=== PATIENT | male | born 1970 | race Caucasian/White ===

== ENCOUNTER 2022-10-01 16:38 | Emergency (ER) | payer BC, SELFPAY ==
[2022-10-01] VITALS (8 sets, daily range): BP systolic 134–163; BP diastolic 86–104; PULSE 63–84; RESP 18; TEMP 36.3; O2SAT 93–95; BMI 33.7
--- NOTE | 2022-10-01 17:26 | ED.GENADULT ---
HPI - General Adult General Time Seen by Provider: 17:26 Date Seen: 10/01/22 Chief complaint: Arrhythmia/Palpitations Stated complaint: Abnormal heartrate Time Seen by Provider: 10/01/22 17:04 Source: patient Mode of arrival: ambulatory Limitations: no limitations History of Present Illness HPI narrative: Ant is a 52-year-old male past medical history includes provoked DVT presents emerged department via private car with heart palpitations. Patient states that in the past he has had on and off heart palpitations, he filled it over the weekend, daily he had palpitations, 5-10 times, lasting a few seconds, this would make him cough, he denies any shortness of breath or chest pain, denies any lightheadedness or dizziness. This occurred at work over the weekend, this is when he was sitting and not exerting himself, denies any alcohol over the weekend, denies any dehydration, he has been eating and drinking normally, no nausea vomiting, episode happened again at work today so he was more concerned. No cardiac history, father had a bypass. Patient states he had a blood clot left lower extremity in 2011 following a leg injury, he has had also has some chronic sciatic pain. He denies any recent travel, leg swelling, at this time. Denies any fevers or chills. Since symptoms are more reoccurring he presents emerged department. Related Data Home Medications Medication Instructions Recorded Confirmed aspirin 81 mg capsule 81 mg PO DAILY 10/01/22 10/01/22 Allergies Allergy/AdvReac Type Severity Reaction Status Date / Time No Known Drug Allergies Allergy Verified 10/01/22 16:45 Review of Systems Status of ROS: Reports: 10 or more systems reviewed and unremarkable except as noted in History and below PFSH PFS Social History Smoking Status: Never smoker How often do you have a drink containing alcohol: monthly or less AUDIT-C Alcohol total score: 1 Non-prescribed substance use: denies use Exam Narrative: Exam Narrative: General: NAD, sittinng comfortalby. HEENT: Cerumen impaction bilaterally. Pupils equal round reactive to light, extraocular muscles intact Neck: Supple Heart normal sinus rhythm, S1-S2 Lungs: Clear to auscultation bilaterally Abdomen: Soft nontender, bowel sounds present Muscle skeletal: Nontender to palpation the lower extremities, no edema or swelling. Neuro: Alert awake and oriented x3 Const: Vital Signs, click to edit/add: Vital Signs - 24 hr 10/01/22 16:42 10/01/22 17:30 10/01/22 17:52 Temperature 97.4 F L Pulse Rate 84 Respiratory Rate 18 Blood Pressure Blood Pressure [Ri ght Upper Arm] 163/104 H 138/89 Pulse Oximetry 95 94 Oxygen Delivery Me thod Room Air 10/01/22 18:00 10/01/22 18:02 10/01/22 18:30 Temperature Pulse Rate 65 63 72 Respiratory Rate Blood Pressure 137/87 Blood Pressure [Ri ght Upper Arm] Pulse Oximetry 93 93 94 Oxygen Delivery Me thod 10/01/22 19:00 10/01/22 19:02 Temperature Pulse Rate 71 72 Respiratory Rate Blood Pressure 134/86 Blood Pressure [Ri ght Upper Arm] Pulse Oximetry 95 95 Oxygen Delivery Me thod Course Course Hospital Course: 4:30 PM: AIDET performed, workup will include IV peripheral, 0.9 normal saline bolus 500 mL, will obtain CBC, TSH, D-dimer, point of care troponin, CMP, EKG and XR chest PA and lateral. Will continue to monitor him , to see if any recurrence. Differential diagnosis include but not limited to psychosocial stress, thyroid abnormalities, heart failure, SVT, atrial fibrillation, V-tach and ventricular fibrillation. These include a life-threatening complication of heart failure V-tach and VFib. Reevaluation(s) Reevaluation #1: Patient updated on his EKG, imaging and lab results, EKG showed a normal sinus rhythm, bpm of 88, no ectopy or acute ST changes, no comparison. CBC showed no leukocytosis, hemoglobin was stable, metabolic panel within normal limits, normal renal function electrolyte, TSH within normal limits, troponin negative, D-dimer within normal limits, imaging showed no acute cardiopulmonary process, patient did not have any reoccurrence of his symptoms during his stay while being on the monitor, plan to discharge with Holter monitor, he needs follow-up with a primary care provider over the next 7-10 days, reasons to return given. Time: 19:26 Vital Signs Vital signs: Initial Vital Signs Temperature 97.4 F L 10/01/22 16:42 Temperature Source Temporal Artery Scan 10/01/22 16:42 Respiratory Rate 18 10/01/22 16:42 Blood Pressure 163/104 H 10/01/22 16:42 Blood Pressure Mean 123 10/01/22 16:42 Pulse Oximetry 95 10/01/22 16:42 Oxygen Delivery Method 10/01/22 16:42 Vital Signs Temperature 97.4 F L 10/01/22 16:42 Respiratory Rate 18 10/01/22 16:42 Blood Pressure 163/104 H 10/01/22 16:42 Pulse Oximetry 95 10/01/22 16:42 Oxygen Delivery Method 10/01/22 16:42 Temperature 97.4 F L 10/01/22 16:42 Pulse Rate 72 10/01/22 19:02 Respiratory Rate 18 10/01/22 16:42 Blood Pressure 134/86 10/01/22 19:02 Pulse Oximetry 95 10/01/22 19:02 Oxygen Delivery Method 10/01/22 16:42 Medical Decision Making Lab Data Labs: Lab Results 10/01/22 10/01/22 10/01/22 Range/Units 15:13 15:13 15:13 WBC 5.97 (4.50-11.00) K/uL RBC 5.31 (4.30-5.90) m/uL Hgb 16.4 (13.5-17.5) gm/dL Hct 49.5 (37.0-53.0) % MCV 93 (80-100) fL MCH 31 (26-34) pg MCHC 33 (32-36) gm/dL RDW Coeff of Jay 12.6 (11.5-15.5) % Plt Count 211 (140-440) K/uL Neut % (Auto) 42.1 (42.0-72.0) % Lymph % (Auto) 43.6 (20-44) % Wy[place] % (Auto) 10.6 (0.0-11.0) % Eos % (Auto) 2.7 (0.0-7.0) % Baso % (Auto) 1.0 (0.0-3.0) % Neut # (Auto) 2.52 (1.7-7.0) K/uL Lymph # (Auto) 2.60 (0.90-2.90) K/uL [place] # (Auto) 0.60 (0.00-0.90) K/UL Eos # (Auto) 0.16 (0.00-0.50) K/uL Baso # (Auto) 0.06 (0.00-0.30) K/uL D-Dimer Quant (PE/DVT) 0.28 (0.00-0.50) ug/ml Sodium 142 (135-149) mmol/L Potassium 4.3 (3.6-5.1) mmol/L Chloride 109 (96-114) mmol/L Carbon Dioxide 25 (20-32) mmol/L BUN 18 (7-30) mg/dL Creatinine 1.0 (0.5-1.5) mg/dL Estimated Creat Clear 87.19 Estimated GFR 89 ml/min Glucose 115 (60-115) mg/dL Calcium 8.9 (8.4-10.6) mg/dL Total Bilirubin 0.6 (0.1-1.5) mg/dL AST 42 H (12-35) U/L ALT 35 (4-50) U/L Alkaline Phosphatase 81 (40-150) U/L Total Protein 8.1 (6.0-8.3) g/dL Albumin 4.4 (3.3-5.0) g/dL TSH (0.270-4.20) uIU/mL POC Troponin I (0.01-0.04) ng/ml 10/01/22 10/01/22 Range/Units 15:13 17:24 WBC (4.50-11.00) K/uL RBC (4.30-5.90) m/uL Hgb (13.5-17.5) gm/dL Hct (37.0-53.0) % MCV (80-100) fL MCH (26-34) pg MCHC (32-36) gm/dL RDW Coeff of Jay (11.5-15.5) % Plt Count (140-440) K/uL Neut % (Auto) (42.0-72.0) % Lymph % (Auto) (20-44) % [place] % (Auto) (0.0-11.0) % Eos % (Auto) (0.0-7.0) % Baso % (Auto) (0.0-3.0) % Neut # (Auto) (1.7-7.0) K/uL Lymph # (Auto) (0.90-2.90) K/uL [place] # (Auto) (0.00-0.90) K/UL Eos # (Auto) (0.00-0.50) K/uL Baso # (Auto) (0.00-0.30) K/uL D-Dimer Quant (PE/DVT) (0.00-0.50) ug/ml Sodium (135-149) mmol/L Potassium (3.6-5.1) mmol/L Chloride (96-114) mmol/L Carbon Dioxide (20-32) mmol/L BUN (7-30) mg/dL Creatinine (0.5-1.5) mg/dL Estimated Creat Clear Estimated GFR ml/min Glucose (60-115) mg/dL Calcium (8.4-10.6) mg/dL Total Bilirubin (0.1-1.5) mg/dL AST (12-35) U/L ALT (4-50) U/L Alkaline Phosphatase (40-150) U/L Total Protein (6.0-8.3) g/dL Albumin (3.3-5.0) g/dL TSH 1.770 (0.270-4.20) uIU/mL POC Troponin I 0.00 L (0.01-0.04) ng/ml Discharge Plan Discharge Clinical Impression: Palpitations Patient Disposition: Home, Self-Care Condition: Improved Instructions: Heart Palpitations (ED) Additional Instructions: To wear Holter Monitor Activity Level: No Restrictions Prescriptions: No Action aspirin 81 mg capsule 81 mg PO DAILY Stand Alone Forms: MyHealth Info Instructions
[2022-10-01] MEDS: 0.9 % SODIUM CHLORIDE 500 ML 500 ML IV (17:30)
[2022-10-01 17:35] LABS: Basophils Absolute Auto 0.06 K/uL (0.00-0.30); Eosinophils Absolute Auto 0.16 K/uL (0.00-0.50); Eosinophils Percent Auto 2.7 % (0.0-7.0); Hematocrit 49.5 % (37.0-53.0); Hemoglobin* 16.4 gm/dL (13.5-17.5); Lymphocytes Percent Auto 43.6 % (20-44); Mean Corpuscular HGB Conc 33 gm/dL (32-36); Mean Corpuscular Hemoglobin 31 pg (26-34); Mean Corpuscular Volume 93 fL (80-100); Monocytes Percent Auto 10.6 % (0.0-11.0); Neutrophils Absolute Auto 2.52 K/uL (1.7-7.0); Neutrophils Percent Auto 42.1 % (42.0-72.0); Platelet Count* 211 K/uL (140-440); RDW Coefficient of Variation % 12.6 % (11.5-15.5); Red Blood Count 5.31 m/uL (4.30-5.90); White Blood Count* 5.97 K/uL (4.50-11.00)
[2022-10-01 17:39] LABS: Slide Review Reflex No
[2022-10-01 18:00] LABS: Albumin* 4.4 g/dL (3.3-5.0); Chloride* 109 mmol/L (96-114)
[2022-10-01 18:01] LABS: Potassium* 4.3 mmol/L (3.6-5.1); Sodium* 142 mmol/L (135-149)
[2022-10-01 18:03] LABS: Bilirubin Total* 0.6 mg/dL (0.1-1.5); Est. Creatinine Clearance* 87.19; Estimated Glomerular Filt Rate 89 ml/min
[2022-10-01 18:04] LABS: Alanine Aminotransferase* 35 U/L (4-50); Alkaline Phosphatase* 81 U/L (40-150); Aspartate Amino Transferase* 42 U/L (12-35); Blood Urea Nitrogen* 18 mg/dL (7-30); Calcium* 8.9 mg/dL (8.4-10.6); Carbon Dioxide* 25 mmol/L (20-32); Glucose* 115 mg/dL (60-115); Total Protein* 8.1 g/dL (6.0-8.3)
[2022-10-01 18:09] LABS: D Dimer Quantitative* 0.28 ug/ml (0.00-0.50)
--- NOTE | 2022-10-01 18:20 | CRLHL7_ITS ---
For Patients: As a result of the Century Cures Act, medical imaging exams and procedure reports are released immediately into your electronic medical record. You may view this report before your referring provider. If you have questions, please contact your health care provider. INDICATION: PALPITATIONS TECHNIQUE: Chest 2 views. COMPARISON: 01/24/19 FINDINGS: Cardiovascular and mediastinum: Heart size and vasculature are normal in caliber and appearance. Mediastinum is within normal limits. Lungs and pleural spaces: Lungs are clear. No sign of infiltrate or mass. No sign of pleural effusion. No pneumothorax. Bones and soft tissues: No significant findings. IMPRESSION: Unremarkable chest. Dictated by: Jim Sawant MD @ 10/01/2022 18:59:25 (Electronically Signed)
--- NOTE | 2022-10-01 19:45 | ED.NURSE ---
dc teaching complete, waiting for holter monitor then pt will leave.
== END 2022-10-01 20:09 | disposition home or self-care (01) ==
PROVIDERS: Emergency Provider Student in an Organized Health Care Education/Training Program; PCP Family Medicine
DX: R00.2 Palpitations (principal)
CPT/HCPCS: 36415; 71046; 80053; 84443; 84484; 85025; 85379; 93005; 93225; 93226; 99283; 99284; J7120

== ENCOUNTER 2025-01-01 18:58 | Emergency (ER) | payer OTHER, BC, SELFPAY ==
--- OUTSIDE RECORDS SUMMARY | 2025-01-01 19:00 | XMS_ITS | Clinical Summary ---
Author Organization [facility] Address [address] [place] [id number] Care Team Providers Care Mergers And Acquisitions Associate Name Role Phone Sera Wing MD Primary Care Provider Allergies No known active allergies Medications MULTIVITAMIN TAB take 1 tablet by oral route once daily with food 0 12/16/2006 Active GLUCOSAMINE-CHO NDROITIN 500 MG-400 MG CAP daily 0 12/30/2006 Activ e FISH OIL CAP daily 0 12/30/2006 Active VITAMIN E 400 UNIT CAP daily 0 12/30/2006 Active VITAMIN B W/C CAP daily 0 12/30/2006 Active ascorbic acid chewable (VITAMIN C) 250 mg Chew Take 2 tablets by mouth once daily. 0 04/17/2010 Active cholecalciferol (VITAMIN D) 1,000 unit capsule Take 1 capsule by mouth once daily. 0 01/10/2012 Active aspirin (ECOTRIN) 81 mg enteric coated tablet Take 1 tablet by mouth once daily with a meal. 0 12/14/2014 Active lutein 6 mg cap Take 1 capsule by mouth once daily. Not sure of dose 0 04/24/2017 Active magnesium oxide (MAG-CAPS ORAL) Take by mouth. 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 03/13/2011 01/10/2012 DVT (deep venous thrombosis) 03/09/2011 11/07/2011 Immunizations Immunization Administration Dates Next Due Td (Age >=7 Years) 04/21/2001 Tdap 12/14/2014,07/14/2000 Zoster (Shingrix-RZV, recombinant) 09/13/2020, Family History Medical History Relation Name Comments No Known Problems Brother 1 Abdiel No Known Problems Brother 2 Garfield No Known Problems Brother 3 Cesar Heart murmur Daughter Carole As a child Cancer-colon Father Heart Disease Father Leukemia Father Glaucoma Mother Hypertension Mother Skin cancer Mother No Known Problems Sister 1 Kacie No Known Problems Sister 2 Syd No Known Problems Sister 3 Tarah No Known Problems Sister 4 Nelida No Known Problems Son Abhinav Relation Name Status Comments Brother 1 Abdiel Alive Brother 2 Garfield Alive Brother 3 Cesar Alive Daughter Carole Alive Father Maternal Grandfather Maternal Grandmother Mother Paternal Grandfather Paternal Grandmother Sister 1 Kacie Alive Sister 2 Syd Alive Sister 3 Tarah Alive Sister 4 Nelida Alive Son Abhinav Alive Social History Tobacco Use Types Packs/Day Years Used Date Smoking Tobacco: Never Smokeless Tobacco: Never Tobacco Cessation:Counseling Given: Yes Alcohol Use Standard Drinks/Week Comments Yes 0 (1 standard drink = 0.6 oz pure alcohol) Once every few months. 1-2 drinks at a time. PHQ-2 Answer Date Recorded PHQ-2 TOTAL SCORE 0 05/29/2023 Social Connections Answer Date Recorded Do you often feel lonely or isolated from those around you? 0 07/03/2023 Financial Resource Strain Answer Date R ecorded Difficulty of Paying Living Expenses 3 07/03/2023 Difficulty of Paying Living Expenses Not on file 07/03/2023 Food Insecurity Answer Date Recorded Do you worry your food will run out before you are able to buy more? 1 07/03/2023 Transportation Needs Answer Date Record ed Does lack of transportation keep you from medica l appointments? 1 07/03/2023 Does lack of transportation keep you from work, meetings or getting things that you need? 1 07/03/2023 Housing Stability Answer Date Recorded What is your housing situation today? 1 07/03/2023 Utilities Answer Date Recorded Do you have trouble paying f or utilities (for example, heat, electricity, water, phone)? 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 Not on file Not on file Obstetrics History Last Filed Vital Signs Vital Sign Reading Time Taken Comments Blood Pressure 138/84 07/03/2023 8:25 AM CHEMIST WATER PURIFICATION Pulse 66 07/03/2023 8:05 AM CHEMIST WATER PURIFICATION Temperature 36.8 C (98.3 F) 06/22/2022 10:34 AM CHEMIST WATER PURIFICATION Respiratory Rate 16 05/20/2023 1:27 PM CHEMIST WATER PURIFICATION Oxygen Saturation 97% 07/03/2023 8:04 AM CHEMIST WATER PURIFICATION Inhaled Oxygen Concentration - - Weight 107 kg (235 lb 12.8 oz) 07/03/2023 8:04 A M CHEMIST WATER PURIFICATION Height 180.3 cm (5' 11) 05/29/2023 3:23 PM CHEMIST WATER PURIFICATION Body Mass Index 32.89 05/29/2023 3:23 PM CHEMIST WATER PURIFICATION Plan of Treatment Health Maintenance Due Date Last Done Comments Hepatitis B series for 19+ ( 1 of 3 - 19+ 3-dose series) 1987 Pneumococcal series for age 50+ (1 of 1 - PCV) 2018 COVID-19 vaccine series ( season) 2024 BMI (ht and wt on same day) for age 18+ 05/29/2024 05/29/2023, 05/15/2022, 05/14/2021, Additional history exists Depression screening for age 12+ 05/29/2024 05/29/2023, 05/15/2022, 05/14/2021, Additional history exists Tetanus booster 12/14/2024 12/14/2014, 10/0 03/2001, 07/14/2000 Influenza Vaccine (Season Ended) 2025 Colonoscopy through age 75 05/20/202805/20, 05/20/2023, 01/13/2018, Additional history exists Lipids for age 45-75 05/29/2028 05/29/2023, 05/15/2022, 05/14/2021, Additional history exists Tdap Completed 12/14/2014, 07/14/2000 Zoster (shingles) series for age 50+ Completed 09/13/2020, 04/25/2020 Hepatitis C screening for ag e 18-79 Completed 05/15/2022 HIV for age 15-65 Completed 05/29/2023 Procedures Procedure Name Priority Date/Time Associated Diagnosis Comments ANTI HIV 1/2 Routine 05/29/2023 3:59 PM CHEMIST WATER PURIFICATION Encounter for screening for HIV LIPID PANEL W REFLEX MEASURED LDL Routine 05/29/2023 3:59 PM CHEMIST WATER PURIFICATION Screening, lipid COLONOSCOPY 05/20/2023 12:41 PM CHEMIST WATER PURIFICATION ANTI HCV Routine 05/15/2022 9:26 AM CDT Need for hepatitis C screening test from Last 3 Months or Most Recently Relevant to Health Maintenance Results * (ABNORMAL) LIPID PANEL W REFLEX MEASURED LDL (05/29/2023 3:59 PM CHEMIST WATER PURIFICATION) CHOLESTEROL,TOTAL 266(H) 100 - 199 mg/dL 05/29/2023 9:59 PM CHEMIST WATER PURIFICATION [facility] Comment: Cholesterol, Total Reference Ranges Desirable <200 mg/dL Borderline 200-239 mg/dL High >=240 mg/dL TRIGLYCERIDES 103 <150 mg/dL 05/29/2023 9:59 PM CHEMIST WATER PURIFICATION [facility] HDL CHOLESTEROL 56 >40 mg/dL 9:59 PM CHEMIST WATER PURIFICATION [facility] NON-HDL CHOLESTEROL 210(H) <145 mg/dl 05/29/2023 9:59 PM CHEMIST WATER PURIFICATION [facility] CHOL/HDL RATIO 4.75(H) <4.50 05/29/2023 9:59 PM CHEMIST WATER PURIFICATION [facility] LDL CHOLESTEROL 189(H) <=130 mg/dL 05/29/2023 9:59 PM CHEMIST WATER PURIFICATION [facility] VLDL CHOLESTEROL 21 <=30 mg/dL 05/29/2023 9:59 PM CHEMIST WATER PURIFICATION [facility] PROVIDER ORDERED STATUS RANDOM 05/29/2023 9:59 PM CHEMIST WATER PURIFICATION [facility] Blood BLOOD SPECIMEN / Unknown Butterfly / Unknown 05/29/2023 3:59 PM CHEMIST WATER PURIFICATION 05/29/2023 3:59 PM CHEMIST WATER PURIFICATION Sera Wing MD CHEMISTRY Final R esult Performing Organization Address City/[facility]/ZIP Co de Phone Number [facility] [address] [place] [address], [place] * ANTI HIV 1/2 (05/29/2023 3:59 PM CHEMIST WATER PURIFICATION) HIV-1/HIV-2 SCREEN Non-Reacti ve Non-Reacti ve 05/29/2023 9:46 PM CHEMIST WATER PURIFICATION [facility] Comment:HIV-1 p24 and HIV-1/ HIV-2 Ab Not Detected. Blood BLOOD SPECIMEN / Unknown Butterfly / Unknown 05/29/2023 3:59 PM CHEMIST WATER PURIFICATION 05/29/2023 3:59 PM CHEMIST WATER PURIFICATION us Sera Wing MD SEND OUTS Final R esult Performing Organization Address City/[facility]/ZIP Co de Phone Number [facility] [address] [place] [address], [place] * COLONOSCOPY (05/20/2023 12:41 PM CHEMIST WATER PURIFICATION) 05/20/2023 12:4 1 PM CHEMIST WATER PURIFICATION Narrative Transcriptions Jose Guadalupe Russo MD - 05/20/2023 1:12 PM CST Patient Name: Ant Ziegler Procedure Date: 05/20/2023 Gender: Male Date of : 1970 Admit Type: Outpatient Procedure: Colonoscopy Proceduralist: Jose Guadalupe Russo MD , Ariella Portillo (Nurse), Elizabeth Townsend (Nurse) Indications/Pre-Op Diagnosis: Screening in patient at increased risk:Family history of 1st-degree relative withcolorectal cancer before age 60 years, Lastcolonoscopy: January 2018 Medications: Fentanyl 100 micrograms IV, Midazolam 2 mgIV, The level of sedation administered wasmoderate Procedure Description: The patient had risks, benefits and alternatives explained to andgave informed consent. The patient had a stable cardiopulmonary status and judged an adequate candidate for conscious sedation. The endoscope [id number] was passed through the anus andadvanced to the cecum, identified by appendiceal orifice and ileocecal valve.The colonoscopy was performed without difficulty. The patient toleratedthe procedure well. The quality of the bowel preparation was good. The ileocecal valve, appendiceal orifice, and rectum were photographed. Complications: No immediate complications. Estimated Blood Loss & Specimen: Estimated blood loss: none. Specimen collected - Yes and sent to Laboratory Findings: The perianal and digital rectal examinations were normal. Two sessile polyps were found in the proximal ascending colon. The polyps were 3 mm in size. These polyps were removed with a coldsnare. Resection was complete, but the polyp tissue was only partially retrieved. The exam was otherwise without abnormality. Impressions/Post-Op Diagnosis: - Two 3 mm polyps in the proximal ascending colon, removed with acold snare. Resected and retrieved. - The examination was otherwise normal. Recommendation: - Patient has a contact number available for emergencies. The signsand symptoms of potential delayed complications were discussed with the patient. Return to normal activities tomorrow. Written discharge instructions were provided to the patient. - Resume previous diet. - Continue present medications. - Await pathology results. - Repeat colonoscopy in 5 years. Moderate Sedation: A time out was performed before the procedure. Moderate (conscious) sedation was administered by the endoscopy nurse and supervised bythe endoscopist. The following parameters were monitored: oxygensaturation, heart rate, blood pressure, EKG, CO2, respiratory rate, adequacy of pulmonary ventilation and reponse to care. Please refer to the patient's medical record flowsheets and nursing notes for moderate sedation details. Total physician intraservice time was 23 minutes. Jose Guadalupe Russo MD 05/20/2023 1:12:45 PM This report has been signed electronically. Note Initiated On: 05/20/2023 12:41 PM Procedure Code(s): --- Professional --- 76293, Colonoscopy, flexible; with removalof tumor(s), polyp(s), or other lesion(s) bysnare technique Diagnosis Code(s): --- Professional --- Z80.0, Family history of malignant neoplasmof digestive organs D12.2, Benign neoplasm of ascending colon CPT copyright 2021 [employer]. All rights reserved. The codes documented in this report are preliminary and upon coder operator reviewmay be revised to meet current compliance requirements. Scope In: 12:47:28 PM Scope Withdrawal Time 0 hours 11 minutes 40 seconds Scope Out: 1:08:18 PM us Jose Guadalupe Russo MD PROCEDURE ORD Final Res ult * ANTI HCV (05/15/2022 9:26 AM CDT) HEPATITIS C ANTIBODY Non-React cassidy Non-React cassidy 05/16/2022 12:26 AM CDT [facility] Comment:Antibodies to HCV no t detected; does not exclude the possibility of exposure to HCV. Blood BLOOD SPECIMEN / Unknown Venipuncture / Unknown 05/15/2022 9:26 AM CDT 05/15/2022 9:26 AM CDT us Sera Wing MD SEND OUTS Final R esult [facility] [address] [place] [address], [place] from Last 3 Months or Most Recently Relevant to Health Maintenance Insurance [employer] * Guarantor: Cheryl Cheema Account Type Relation to Patient Date of Phone Billing Address Personal/Family 1970 [address] [facility] [place] [phone] Care Teams Mergers And Acquisitions Associate Relationship Specialty [place] [id number] [address] [facility] [place] [address] PCP - General Family Practice 03/20/22
--- OUTSIDE RECORDS SUMMARY | 2025-01-01 19:00 | XMS_ITS | Clinical Summary ---
Author Organization [facility] Address [address] [place] [address] Care Team Providers Care Ent Surgeon Name Role Phone No Ref-Primary, Physician Primary Care Provider Allergies No known active allergies Medications Multiple Vitamins-Mineral s (MULTIVITAMIN OR) Active aspirin 81 MG tablet Take by mouth daily Active Active Problems Problem Noted Date Diagnosed Date DVT (deep venous thrombosis) 12/20/2013 Immunizations Immunization Administration Dates Next Due TDAP (Adacel,Boostrix) 07/14/2000 Family History Medical History Relation Comments Cancer Father Heart Disease Father Arthritis Mother Hypertension Mother Relation Status Comments Father Mother Social History Tobacco Use Types Packs/Day Years Used Date Smoking Tobacco: Never Smokeless Tobacco: Never Tobacco Cessation:Counseling Given: Yes Alcohol Use Standard Drinks/Week Comments Yes 0 (1 standard drink = 0.6 oz pur e alcohol) Sex and Gender Information Value Date Recorded Sex Assigned at Not on file Legal Sex Male 3:19 AM SOUND CONTROLLER Gender Identity Not on file Sexual Orientation Not on file Last Filed Vital Signs Vital Sign Reading Time Taken Comments Blood Pressure 122/78 11/28/2017 3:35 PM CDT Pulse 88 11/28/2017 3:35 PM CDT Temperature 37.2 C (98.9 F) 08/23/2017 10:33 AM SOUND CONTROLLER Respiratory Rate 16 11/13/2017 9:37 AM CDT Oxygen Saturation 95% 11/28/2017 3:35 PM CDT Inhaled Oxygen Concentration - - Weight 104.3 kg (230 lb) 11/13/2017 9:37 AM CDT pt reported Height 177.8 cm (5' 10) 11/13/2017 9:37 AM CDT pt reported Body Mass Index 33 11/13/2017 9:37 AM CDT Plan of Treatment Not on file Insurance [place] Care Teams Ent Surgeon Relationship Specialty Start Date End Date No Ref-Primary, Physician PCP - General 08/23/17
[2025-01-01 19:05] VITALS: BP 155/85; PULSE 85; RESP 18; TEMP 36.9; O2SAT 99; BMI 30.8
--- NOTE | 2025-01-01 19:21 | CRLHL7_ITS ---
For Patients: As a result of the Century Cures Act, medical imaging exams and procedure reports are released immediately into your electronic medical record. You may view this report before your referring provider. If you have questions, please contact your health care provider. Indication: Mid posterior forearm pain Comparison: None available. Technique: AP and lateral views left forearm were obtained. Findings: There is no displaced fracture or dislocation. The joint spaces are grossly preserved. The soft tissues are unremarkable. Impression: No acute osseus abnormality. Dictated by Luis Angel Majano MD @ 01/01/2025 7:58:45 PM (Electronically Signed)
--- NOTE | 2025-01-01 19:21 | CRLHL7_ITS ---
For Patients: As a result of the Century Cures Act, medical imaging exams and procedure reports are released immediately into your electronic medical record. You may view this report before your referring provider. If you have questions, please contact your health care provider. Indication: Distal tenderness of the volar aspect of the ulna, fall Comparison: None available. Technique: AP, lateral, and oblique views left wrist were obtained. Findings: There is questionable subtle fracture through the dorsum of the carpus seen on the lateral projection. No other displaced injuries are appreciated. The joint spaces are grossly preserved. There is mild carpal soft tissue prominence. Impression: Questionable subtle lucency through the dorsum of the carpus seen best on the lateral projection which may represent a nondisplaced triquetral fracture. Otherwise, no evidence of displaced fracture is identified. Mild carpal soft tissue swelling. Dictated by Luis Angel Majano MD @ 01/01/2025 7:53:53 PM (Electronically Signed)
--- NOTE | 2025-01-01 19:46 | ED.UPPEXIN ---
HPI - Extremity Injury (Upper) General Date Seen: 01/01/25 Chief Complaint: Extremity Pain/Injury, Upper Stated Complaint: Left forearm/wrist injury Time Seen by Provider: 01/01/25 19:05 Source: patient Mode of arrival: ambulatory Limitations: no limitations History of Present Illness HPI narrative: Patient is a 54-year-old male presenting to the emergency department for left forearm and wrist pain. He states earlier today he tripped and fell and caught himself with his hands. States he did not hit his head. Since then he has been having pain in his mid dorsal forearm region most notably when he tries to turn his hand. Pain seems to come across towards the medial epicondyle. At rest he does not have much pain. He tried icy and home but the pain persisted. Came in to make sure there are no other injuries. Denies any numbness to the hand. No pain with flexion of the wrist but does have pain with extension. No other concerns noted Related Data Home Medications ?Medication ?Instructions ?Recorded ?Confirmed aspirin 81 mg capsule 81 mg PO DAILY 10/01/22 01/01/25 Allergies Allergy/AdvReac Type Severity Reaction Status Date / Time No Known Drug Allergies Allergy Verified 01/01/25 19:06 Review of Systems Narrative: Pertinent systems reviewed and were negative unless stated in HPI PFSH PFSH Social History Smoking Status: Never smoker Second hand tobacco smoke exposure: No How often do you have a drink containing alcohol: monthly or less AUDIT-C Alcohol total score: 1 Non-prescribed substance use: denies use Exam Narrative: Exam Narrative: Const: Well-nourished, Well-developed, in mild distress Eyes: PERRL, no conjunctival injection, and symmetrical lids HENT: Atraumatic external nose and ears. Moist mucous membranes. CVS: Radial pulse +2 bilaterally MSK:Extremities w/o deformity, mild tenderness near the distal volar aspect of the ulna. Decreased active range of motion of the wrist secondary to pain most notably with pronation and extension. No snuffbox tenderness Skin: Warm, Dry. No rashes or lesions. Neuro: Normal Muscle tone, No focal neurological deficits. Psych: Awake, Alert, & Oriented x3. Appropriate mood and affect. Const: Vital Signs, click to edit/add: Vital Signs - 24 hr 01/01/25 19:05 Temperature 98.4 F Pulse Rate [Right Pulse Oximeter] 85 Respiratory Rate 18 Blood Pressure [Ri ght Upper Arm] 155/85 H Pulse Oximetry 99 Oxygen Delivery Me thod Room Air Course Vital Signs Vital signs: Initial Vital Signs Temperature 98.4 F 01/01/25 19:05 Temperature Source Temporal Artery Scan 01/01/25 19:05 Pulse Rate 85 01/01/25 19:05 Respiratory Rate 18 01/01/25 19:05 Blood Pressure 155/85 H 01/01/25 19:05 Blood Pressure Mean 108 H 01/01/25 19:05 Blood Pressure Position Sitting 01/01/25 19:05 Pulse Oximetry 99 01/01/25 19:05 Oxygen Delivery Method Room Air 01/01/25 19:05 Vital Signs Temperature 98.4 F 01/01/25 19:05 Pulse Rate 85 01/01/25 19:05 Respiratory Rate 18 01/01/25 19:05 Blood Pressure 155/85 H 01/01/25 19:05 Pulse Oximetry 99 01/01/25 19:05 Oxygen Delivery Method Room Air 01/01/25 19:05 Temperature 98.4 F 01/01/25 19:05 Pulse Rate 85 01/01/25 19:05 Respiratory Rate 18 01/01/25 19:05 Blood Pressure 155/85 H 01/01/25 19:05 Pulse Oximetry 99 01/01/25 19:05 Oxygen Delivery Method Room Air 01/01/25 19:05 MDM - Extremity Injury (Upper) MDM Narrative Medical decision making narrative: Patient is a 54-year-old male presenting for forearm and wrist pain. He does have some tenderness near the distal ulna the also has pain seems to be in mid forearm. Seems most likely muscle strain based on the description by will do x-rays to rule out any fractures. X-ray shows no fractures of the forearm but there is possibly a small triquetral fracture. It is rather faint so hard to say definitively. He does have tenderness there so I will put him in a splint and treated as a fracture. He is agreeable to this plan. He will follow-up with orthopedics. He is neurovascular intact. Imaging Data X-ray left wrist: Attestation: I have reviewed the pertinent imaging results. Radiologist's impression: Questionable subtle lucency through the dorsum of the carpus seen best on the lateral projection which may represent a nondisplaced triquetral fracture. Otherwise, no evidence of displaced fracture is identified. Mild carpal soft tissue swelling. Dictated by Luis Angel Majano MD @ 01/01/2025 7:53:53 PM X-ray left forearm: Attestation: I have reviewed the pertinent imaging results. Radiologist's impression: No acute osseus abnormality. Dictated by Luis Angel Majano MD @ 01/01/2025 7:58:45 PM Discharge Plan Discharge Clinical Impression: Fracture of triquetral bone of left wrist Qualifiers: Encounter type: initial encounter Fracture type: closed Fracture alignment: nondisplaced Qualified Code(s): S62.115A - Nondisplaced fracture of triquetrum [cuneiform] bone, left wrist, initial encounter for closed fracture Patient Disposition: Home, Self-Care Condition: Stable Instructions: Wrist Fracture in Adults (ED) Additional Instructions: It is hard to say for certain but he may have a small fracture of your wrist. Follow-up with [facility]. Call them at . Take Tylenol and ibuprofen for pain Prescriptions: No Action aspirin 81 mg capsule 81 mg PO DAILY Follow Up/Referrals: Sera Wing MD [Primary Care Provider, Family Practice] Stand Alone Forms: [facility] Info Instructions Procedures Orthopedic Splinting/Casting Left wrist: Side: left Upper Extremity Injury Location: wrist Upper extremity immobilizer: volar splint Applied by clinician: / Conclusion: patient tolerated procedure
[2025-01-01 20:31] VITALS: BP 135/74; PULSE 80; RESP 18; TEMP 36.9; O2SAT 99
[2025-01-01 20:32] VITALS: BP 135/74; PULSE 80; RESP 18; TEMP 36.9
== END 2025-01-01 20:33 | disposition home or self-care (01) ==
PROVIDERS: Emergency Provider Student in an Organized Health Care Education/Training Program; PCP Family Medicine
DX: S62.115A Nondisplaced fracture of triquetrum [cuneiform] bone, left wrist, initial encounter for closed fracture (principal); W01.0XXA Fall on same level from slipping, tripping and stumbling without subsequent striking against object, initial encounter
CPT/HCPCS: 29125; 73090; 73110; 99283